=== PATIENT | male | born 1955 | race African-American/Black ===

== ENCOUNTER → 2017-05-15 | Outpatient (CLI) | payer SELFPAY ==
[~2017-05-15] MED LIST: Colace PO; FLOMAX0.4 MG PO; GLIPIZIDE10 M1 G-TUBE; GLIPIZIDE5 MG PO; GLUCOPHAGE1000 MG PO; LIPITOR40 MG PO; ONGLYZA5 MG PO
== END | disposition home or self-care (01) ==
LOC: RAD 13:17
DX: M25.521 Pain in right elbow (principal)
CPT/HCPCS: 73080